=== PATIENT | male | born 1955 | race Caucasian/White ===

== ENCOUNTER 2019-08-16 10:53 | Emergency (ER) | payer OTHER ==
[~2019-08-16] VITALS: Ht 172.7 cm; Wt 158.2 kg
[2019-08-16 10:57] VITALS: Ht 172.7 cm; Wt 158.2 kg
[2019-08-16] MEDS ORDERED: LANTUS SOL100 UNIT/1 SC (11:05)
[2019-08-16] MEDS ORDERED: ZYLOPRIM100 MG PO (11:05)
[2019-08-16] MEDS ORDERED: COMBIVENT RESPIM4 GM INH (11:07)
[2019-08-16] MEDS ORDERED: HYDROCODON-ACE1 EA10 PO (11:07)
[2019-08-16] MEDS ORDERED: NOVOLOG100 UNIT/1 SC (11:07)
[2019-08-16] MEDS ORDERED: TIROSINT13 MCG PO (11:08)
[2019-08-16] MEDS ORDERED: BUMEX2 MG PO (11:08)
[2019-08-16] MEDS ORDERED: NORVASC5 MG PO (11:09)
[2019-08-16] MEDS ORDERED: TERBINAFINE15 GM PO (11:09)
[2019-08-16] MEDS ORDERED: LIPITOR10 MG PO (11:10)
[2019-08-16] MEDS ORDERED: LISINOPRIL20 MG PO (11:10)
[2019-08-16] MEDS ORDERED: CLARITIN 10 MG10 MG PO (11:11)
[2019-08-16] MEDS ORDERED: HYDROXYZINE HCL50 MG PO (11:11)
[2019-08-16] MEDS ORDERED: BAYER ASPIRIN325 MG PO (11:11)
[2019-08-16] MEDS ORDERED: VITAMIN D31000 UNI2 PO (11:12)
[2019-08-16] MEDS ORDERED: SUPER BETA PROSTATE (11:12)
[2019-08-16 11:28] LABS: HEMATOCRIT 51.4 % (42.0-54.0); MCH 28.1 pg (26.0-34.0); MCHC 33.1 g/dL (31.0-37.0); MCV 85.1 fL (80.0-100.0); MEAN PLATELET VOLUME 8.5 fL (7.4-10.4); NEUTROPHILS 78.5 % (40-80); PLATELET COUNT 100 10x3/uL (130-400); RBC 6.04 10x6/uL (4.20-6.10); RDW 13.6 % (11.5-14.5); WBC 9.2 10x3/uL (4.8-10.8)
[2019-08-16 11:38] LABS: APTT 25.7 SECONDS (22.8-39.4); INR 0.93 (0.85-1.17)
[2019-08-16 11:40] LABS: D-DIMER-QUANTITATIVE 0.47 ug/mLFEU (0.20-0.54)
[2019-08-16 11:41] LABS: CALC OSMOLALITY 280 mosm/kg (275-300); CALCIUM 9.3 mg/dL (8.5-10.1); CARBON DIOXIDE 31.7 mmol/L (21.0-32.0); CHLORIDE - SERUM 98 mmol/L (98-107); GLUCOSE 224 mg/dL (74-106); POTASSIUM - SERUM 4.7 mmol/L (3.5-5.1); SODIUM 136 mmol/L (136-145); UREA NITROGEN 17 mg/dL (7-18); eGFR NON AFRICAN AMERICAN 80 mL/min (90-120)
[2019-08-16 11:46] LABS: ALBUMIN 3.2 g/dL (3.4-5.0); ALKALINE PHOSPHATASE 115 U/L (46-116); ALT (SGPT) 38 U/L (10-68); BILIRUBIN - TOTAL 0.47 mg/dL (0.2-1.3); LIPASE 104 U/L (73-393); PRO BNP 15 pg/mL (0-125); PROTEIN - SERUM 6.9 g/dL (6.4-8.2); TROPONIN-I < 0.017 ng/mL (0.000-0.060)
[2019-08-16 12:35] VITALS: BP 152/101
== END 2019-08-16 12:37 | disposition left against medical advice (07) ==
LOC: D.ER 10:53
PROVIDERS: Family Medicine
DX: R07.9 Chest pain, unspecified (principal); I10 Essential (primary) hypertension; E11.9 Type 2 diabetes mellitus without complications